=== PATIENT | female | born 1995 | race Caucasian/White ===

== ENCOUNTER 2023-06-05 15:17 | Outpatient (CLI) | payer OTHER, SELFPAY ==
--- NOTE | ~2023-06-05 | US_ITS ---
EXAMINATION: US OB follow up DATE: 06/05/2023 16:25 INDICATION: Encounter for supervision of normal . TECHNIQUE: Real-time ultrasound of the pelvis was performed. COMPARISON: Ultrasound 02/19/2023, 11/27/22 FINDINGS: There is a single living fetus in vertex presentation. The placenta is anterior. The cervical length is 3.5 cm on transabdominal images, which is normal. heart rate is 135 beats per minute (bpm). The amniotic fluid index is 20.0, which is normal. The following biometric data were obtained: Biparietal diameter (BPD): 9.4 cm; head circumference (HC): 32.5 cm; abdominal circumference (AC): 32 .9 cm; femur length (FL): 7.2 cm. These measurements are concordant. Estimated weight is 3089 g +/- 463 g, which correlates with the 75th percentile when 07/02/23 is used as estimated date of delivery. As single measurements, these parameters are each equal to the following estimated gestational ages: BPD: 38 weeks 1 days. HC: 36 weeks 6 days. AC: 36 weeks 5 days. FL: 37 weeks 0 days. estimated gestational age based solely on measurements from this exam is 37 weeks 1 days +/- 2 weeks 4 days. IMPRESSION: 1. Single living fetus in vertex presentation. 2. Estimated weight is 3089 g +/- 463 g, which correlates with the 75th percentile when 3 is used as estimated date of delivery. Reviewed, dictated and finalized at location B. IMPRESSION: 1. Single living fetus in vertex presentation. 2. Estimated weight is 3089 g +/- 463 g, which correlates with the 75th percentile when 07/02/23 is used as estimated date of delivery.
== END 2023-06-05 15:18 | disposition home or self-care (01) ==
PROVIDERS: Visit Provider Student in an Organized Health Care Education/Training Program
DX: Z34.93 Encounter for supervision of normal pregnancy, unspecified, third trimester (principal); Z3A.37 37 weeks gestation of pregnancy
CPT/HCPCS: 76816

== ENCOUNTER 2023-06-27 06:12 | Inpatient (IN) | payer OTHER, SELFPAY ==
[2023-06-27] VITALS (175 sets, daily range): BP systolic 69–130; BP diastolic 43–99; PULSE 52–123; RESP 18; TEMP 36.2–36.6; O2SAT 95–100; BMI 38.9
--- NOTE | 2023-06-27 06:40 | LDADM ---
This patient, Bibi Null, was admitted to Labor/Delivery/Recovery 104 on 06/27/23 at 06:12. Plans for labor, pain management and were discussed with patient. Patient/family oriented to hospital policies and general routines including ID bracelet, bed and alarms, visiting hours, pain management, procedures, bathroom and other care routines, personal items, smoking policy, room service/diet and guest tray routines, security routines, and visiting hours. Patient/Family are encouraged to report perceived risks to care and to ask questions if they do not understand what they are told or what they should do. See OBIX for further documentation.
[2023-06-27] MEDS: OXYTOCIN 30 UNITS/NS 500 ML 30 UNITS/500 ML BAG IV CONT (07:25)
[2023-06-27] MEDS: AMPICILLIN 2 GM/NS 100 ML 2 GM/100 ML BAG IVPB (07:26)
[2023-06-27] MEDS: LACTATED RINGERS 1,000 ML 125 ML IV CONT ×2 (07:26→09:14)
[2023-06-27 07:49] LABS: Basophils Percent Auto 0.3 % (0.2-1.2); Eosinophils Absolute Auto 0.1 K/mm3 (0-0.3); Eosinophils Percent Auto 0.9 % (0-4.4); Hematocrit 35.5 % (37.0-47.0); Hemoglobin 11.4 g/dL (12.0-15.0); Immature Granulocyte Absolute 0.01 K/mm3 (0.00-0.031); Immature Granulocyte Percent A 0.1 % (0-0.5); Lymphocytes Absolute Auto 1.77 K/mm3 (0.9-3.2); Lymphocytes Percent Auto 25.9 % (18.3-44.2); Mean Corpuscular HGB Conc 32.1 g/dl (32-36); Mean Corpuscular Hemoglobin 28.1 pg (26-34); Mean Corpuscular Volume 87.4 fl (80-100); Mean Platelet Volume 11.5 fl (7.4-10.4); Monocytes Absolute Auto 0.4 K/mm3 (0.1-0.6); Monocytes Percent Auto 6.1 % (2.6-8.5); Neutrophils Absolute Auto 4.6 K/mm3 (1.3-6.7); Neutrophils Percent Auto 66.7 % (45.5-73.1); Platelet Count Result 162 k/mm3 (150-375); Red Blood Count 4.06 M/mm3 (4.2-5.4); Red Cell Distribution Width 13.2 % (11.5-14.5); White Blood Count 6.8 K/mm3 (4.5-10.0)
[2023-06-27 08:42] LABS: Rubella IgG Antibody 40.4 IU/ML
--- NOTE | 2023-06-27 09:56 | WPDANESEPP ---
Anes - Eval Pre Procedure Procedure: Labor Epidural Date/Time: 06/27/23 09:56 Surgeon: Sultana Preop Diagnosis: Labor Pain Pre Op Diagnosis: Induction of Labor Patient Data Age: 28 Gender: F Height: 1.63 m Weight: 103 kg Last Vital Signs Temp 36.2 C L 06/27/23 09:11 Pulse 89 06/27/23 09:55 BP 126/76 06/27/23 09:55 Pulse Ox 100 06/27/23 09:52 O2 Del Method Room Air 06/27/23 06:38 Allergies Allergy/AdvReac Type Severity Reaction Status Date / Time No Known Allergies Allergy Verified 06/25/23 14:26 Home Medications Medication Instructions Recorded Confirmed Type PNV 153-FA 400 mcg-om3 35 mg-dha 1 tablet PO DAILY 04/19/23 06/20/23 History 25 mg-epa 5 mg-fish oil chew tablet ( Gummies) ferrous sulfate 325 mg (65 mg 325 mg PO DAILY #90 tabs 04/19/23 06/20/23 Rx iron) tablet,delayed release Laboratory Tests 06/27/23 06/27/23 06:51 07:02 WBC 6.8 K/mm3 (4.5-10.0) RBC 4.06 L M/mm3 (4.2-5.4) Hgb 11.4 L g/dL (12.0-15.0) Hct 35.5 L % (37.0-47.0) MCV 87.4 fl (80-100) MCH 28.1 pg (26-34) MCHC 32.1 g/dl (32-36) RDW 13.2 % (11.5-14.5) Plt Count 162 k/mm3 (150-375) MPV 11.5 H fl (7.4-10.4) Immature Gran % (Auto) 0.1 % (0-0.5) Neut % (Auto) 66.7 % (45.5-73.1) Lymph % (Auto) 25.9 % (18.3-44.2) [place] % (Auto) 6.1 % (2.6-8.5) Eos % (Auto) 0.9 % (0-4.4) Baso % (Auto) 0.3 % (0.2-1.2) Lymph # (Auto) 1.77 K/mm3 (0.9-3.2) [place] # (Auto) 0.4 K/mm3 (0.1-0.6) Eos # (Auto) 0.1 K/mm3 (0-0.3) Baso # (Auto) 0.0 K/mm3 (0.0-0.1) Abs Immat Gran (auto) 0.01 K/mm3 (0.00-0.031) Absolute Neuts (auto) 4.6 K/mm3 (1.3-6.7) Absolute Nucleated RBC 0.0 K/mm3 (0.0-0.012) Nucleated RBC % 0.0 % (0.0-0.2) RPR Pending Rubella IgG Antibody 40.4 IU/ML (10 - ) Blood Type A Positive Antibody Screen Negative Patient hx anesthesia problems: none Family hx anesthesia problems: none Results Review: All pre-operative results and documents have been reviewed as part of the pre-operative evaluation. [facility] Past Medical History Medical History Suppression of menses Family History Family History Father Congestive heart failure Social History Social History Smoking status: Current every day smoker Tobacco type: e-cigarettes/vaping Alcohol intake: never Substance use: never Lack of Transportation: No Lack of Food: Never True Current Housing: I Have Housing Concerned About Future Housing: No Difficulty Paying Gas/Electric Bills: No Difficulty Paying for Meds: No Currently Unemployed: No Education: High School Diploma/GED Difficulty w/ Childcare or Family Care: No Occupation/Education: unemployed Gender identity (if verbalized by the patient): Female Sexual Orientation (if Verbalized by the Patient): Straight or Heterosexual Spiritual care concerns: No Exam Day of Procedure 06/27/23 09:56 Patient weight: obese Heart: regular rate and rhythm Lungs: normal air movement Airway: Mallampati scale class II Neurological: alert and oriented
[2023-06-27] MEDS: CALCIUM CARBONATE (TUMS) 500 MG (200 MG ELEMENTAL) (10:19)
--- NOTE | 2023-06-27 10:25 | WPDHPUPDATE1 ---
History and Physical Update Update Date/Time: 06/27/23 10:25 28-year-old who presents for elective induction of labor at 39 weeks 2 days. Her has been uncomplicated thus far. History and Physical has been reviewed, including an updated exam of the patient. There are NO changes in the patient's condition. Risks, benefits, and alternatives have been discussed and questions answered. Patient agrees to proceed with procedure. A/P: Admit to L&D Routine admission orders labs reviewed Rh positive GBS unknown, will treat with antibiotics Plan for elective induction of labor Continuous external monitoring Will plan for AROM and Pitocin for augmentation of labor
[2023-06-27] MEDS: AMPICILLIN 1 GM/NS 50 ML 1 GM/50 ML BAG IVPB ×2 (11:51→16:00)
--- NOTE | 2023-06-27 12:21 | PM.OBPNLAB ---
Pain Control Date/time seen: 06/27/23 12:21 Pain control: tolerating well and epidural Pelvic Exam Dilation (cm): 4 Effacement (%): 50 station: -2 Amniotic membrane status: Ruptured Contractions Monitor mode: External Contraction pattern: Regular Status status: Category l Assessment and Plan Pitocin rate (mU/min): 6 Assessment: induction ongoing Plan: continuous present management Comments: IUPC placed
[2023-06-27] MEDS: ONDANSETRON INJ 4 MG/2 ML VIAL IV PUSH (13:52)
[2023-06-27 14:43] LABS: Rapid Plasma Reagin Non-Reactive (NonReactive)
--- NOTE | 2023-06-27 16:32 | PM.OBPRVD ---
OB - Delivery Note Procedure Procedure: Patient pushed for a spontaneous vaginal delivery. The fetus was delivered atraumatically and placed on the maternal abdomen. The cord was clamped and cut after 1 minute of life. The cord was double clamped and cut and a segment of cord was collected for cord gases. Cord blood was collected for blood type and Coomb's testing. The placenta delivered spontaneously and was noted to be intact. The perineum was inspected and there was a 1st degree perineal laceration. The laceration was repaired with 3-0 vicryl in the usual fashion. The uterus was firm and good hemostasis was noted. The patient and fetus were stable in the delivery room. Induction method: Per Pitocin Protocol Delivery augmentation: Rupture of Membranes Delivery monitor: External FHT Route of delivery: Episiotomy description: None Laceration Description: Labial (right) Delivery repair: vicryl Specimen: No Quantitative Blood Loss (ml): 200 Anesthesia type: Epidural Disposition: Floor () Complications: No immediate complications Baby Date of : 06/27/23 Time of : 16:14 Weeks of gestation at delivery: 39 Infant gender: Male presentation: vertex position: Right Occiput Anterior Placenta delivery description: Spontaneous Cord Vessel Description: 3 Vessels score one minute: 8 score five minutes: 9 AMG Delivery Billing Delivery Delivery: Delivery Charge
--- NOTE | 2023-06-27 17:05 | PM.OBDSVD ---
DS: Admitting Diagnosis Discharge Date 06/28/23 Admitting Diagnosis intrauterine at term DS: Discharge Diagnosis Discharge Diagnosis (1) Supervision of high risk , unspecified, third trimester: Code(s): O09.93 - Supervision of high risk , unspecified, third trimester Status: Acute OB - DS: Summary OB Procedures : None OB Procedures Intrapartum: Spontaneous Vag Delivery OB Procedures: : None Status at Discharge Functional status at discharge: independent ambulation Overall status at discharge: patient is back to baseline Time Spent with Patient Time attestation: Total time spent providing and/or coordinating discharge services: Time spent: Less than 30 minutes Exam Const: General: comfortable and no acute distress Resp: Effort & Inspection: normal respiratory effort Auscultation: clear to auscultation bilaterally Cardio: Rate: regular rate GI: GI Palp: Yes Soft to palpation Auscultation: normal bowel sounds Other: Fundus firm below umbilicus Psych: Appearance: grossly normal Mental Status: mental status grossly normal Affect: normal affect DS: Data Data Completed and Pending Labs on day of discharge: Labs from last 24 hours 06/27/23 06/27/23 07:02 06:51 WBC 6.8 RBC 4.06 L Hgb 11.4 L Hct 35.5 L MCV 87.4 MCH 28.1 MCHC 32.1 RDW 13.2 Plt Count 162 MPV 11.5 H Immature Gran % (Auto) 0.1 Neut % (Auto) 66.7 Lymph % (Auto) 25.9 [place] % (Auto) 6.1 Eos % (Auto) 0.9 Baso % (Auto) 0.3 Lymph # (Auto) 1.77 [place] # (Auto) 0.4 Eos # (Auto) 0.1 Baso # (Auto) 0.0 Abs Immat Gran (auto) 0.01 Absolute Neuts (auto) 4.6 Absolute Nucleated RBC 0.0 Nucleated RBC % 0.0 RPR Non-reactive Rubella IgG Antibody 40.4 Blood Type A Positive Antibody Screen Negative Discharge Plan Discharge Consulting providers: Rosy Alfaro; Adela Upton; Lex Weinberg Discharging Clinician: Rafat Schumacher Patient Disposition: Home, Self-Care Activity: as tolerated and pelvic rest Diet: regular Discharge Instructions: Education: Mom and Baby Guide Given to: Mother Follow-Up: Call your delivering provider's office for an appointment to be seen in: 4-6 weeks Mom and baby should come to the [facility] for the follow-up appointment. Appointment Date/Time: June 30, 2023 at 9:00 am What to expect at your follow-up visit: Physical Assessment Call [phone] if you are unable to keep your appointment time. BREAST CARE: * Wear a snug supportive bra. * Bottle Feeding: * May apply ice packs EPISIOTOMY/PERINEAL CARE: * Until bleeding stops, use your edel bottle after urinating * Change your pad frequently throughout the day * You may take sitz baths several times a day (fill your bathtub with warm water and soak for 20 minutes.) Do NOT bathe in the water * No tub baths until seen by your physician - You may shower ACTIVITY: * Rest as much as possible. * Do not exercise or lift anything heavier than your baby (such as laundry or other children.) * Avoid stairs or driving as much as possible. * Do not put anything into the vagina. No douching, tampons, or sexual activity until seen by physician. NOTIFY PHYSICIAN IF YOU HAVE ANY QUESTIONS OR IF ANY OF THE FOLLOWING SYMPTOMS OCCUR: * If your episiotomy/perineum becomes red, swollen, or more painful than what you have experienced in the hospital. * If your vaginal bleeding becomes foul smelling. * If your vaginal bleeding becomes more heavy than a period or if your bleeding changes from pink to bright red. However, you may pass an occasional walnut-sized clot once or twice for the first week . * If you experience a sharp, shooting pain in you calves. * If you discover a hard, reddened area on your breast or if you experience flu-like symptoms. DIET: * Eat regular, well-balanced me
[2023-06-27] MEDS: OXYTOCIN 30 UNITS/NS 500 ML 30 UNITS/500 ML BAG 125 UNITS IV CONT (17:06)
[2023-06-28 04:13] VITALS: BP 124/66; PULSE 57; RESP 18; TEMP 35.9; O2SAT 100
[2023-06-28 04:22] LABS: Hematocrit 33.5 % (37.0-47.0); Hemoglobin 10.6 g/dL (12.0-15.0)
--- NOTE | 2023-06-28 07:41 | PM.OBDSVD ---
DS: Admitting Diagnosis Discharge Date 06/28/2023 Admitting Diagnosis DS: Discharge Diagnosis Discharge Diagnosis (1) , delivered: Code(s): O80 - Encounter for full-term uncomplicated delivery Status: Acute OB - DS: Summary OB Procedures : None OB Procedures Intrapartum: Spontaneous Vag Delivery OB Procedures: : None Time Spent with Patient Time attestation: Total time spent providing and/or coordinating discharge services: DS: Data Data Completed and Pending Labs on day of discharge: Labs from last 24 hours 06/28/23 06/27/23 06/27/23 03:53 07:02 06:51 WBC 6.8 RBC 4.06 L Hgb 10.6 L 11.4 L Hct 33.5 L 35.5 L MCV 87.4 MCH 28.1 MCHC 32.1 RDW 13.2 Plt Count 162 MPV 11.5 H Immature Gran % (Auto) 0.1 Neut % (Auto) 66.7 Lymph % (Auto) 25.9 [place] % (Auto) 6.1 Eos % (Auto) 0.9 Baso % (Auto) 0.3 Lymph # (Auto) 1.77 [place] # (Auto) 0.4 Eos # (Auto) 0.1 Baso # (Auto) 0.0 Abs Immat Gran (auto) 0.01 Absolute Neuts (auto) 4.6 Absolute Nucleated RBC 0.0 Nucleated RBC % 0.0 RPR Non-reactive Rubella IgG Antibody 40.4 Blood Type A Positive Antibody Screen Negative Discharge Plan Discharge Discharging Clinician: Rafat Schumacher Patient Disposition: Home, Self-Care Activity: as tolerated and pelvic rest Diet: regular Patient Instructions: Antibiotic Form, Vaginal Delivery (DC) Stand Alone Forms: General Discharge Information Follow-up/Referrals: Rafat Schumacher MD [Physician] - Discharge Medications: New acetaminophen 500 mg tablet 500 mg PO Q6H PRN (Reason: pain) Qty: 30 0RF ibuprofen 600 mg tablet 600 mg PO Q6H PRN (Reason: pain) Qty: 30 0RF Continued Gummies 400 mcg-35 mg- 25 mg-5 mg tablet,chewable 1 tablet PO DAILY ferrous sulfate 325 mg (65 mg iron) tablet,delayed release (DR/EC) 325 mg PO DAILY Qty: 90 2RF Date of admission: 06/27/23 06:12 Primary Care Provider: PHYSICIAN,MANAGER UTILIZATION Admitting Provider: Rafat Schumacher Attending physician on admission: Rafat Schumacher Condition: Stable
[2023-06-28] MEDS: IBUPROFEN 600 MG TABLET PO (08:16)
[2023-06-28] MEDS: DOCUSATE SODIUM 100 MG CAPSULE PO (08:16)
[2023-06-28] MEDS: MULTIVIT/MIN/PREN/FOL AC/IRON TABLET 1 TAB PO (08:16)
[2023-06-28 08:35] VITALS: BP 106/63; PULSE 63; RESP 18; TEMP 36.2; O2SAT 100
[2023-06-28] MEDS: ACETAMINOPHEN 325 MG TABLET 650 MG PO (10:13)
[2023-06-28 12:36] VITALS: BP 98/50; PULSE 65; RESP 16; TEMP 36.6; O2SAT 100
--- NOTE | 2023-06-28 13:26 | WPDANLDPN2 ---
Anes-Prog Note L&D Date/Time: 06/28/23 13:26 Comfortable throughout: labor and delivery Neuraxial method: epidural Epidural/Spinal procedure site: clean & non-tender Neuro status: Neuro function grossly intact. Cardiovascular status: normal Respiratory status: normal Airway patency: baseline Mental status: baseline Post-Op hydration status: normal Vital Signs: Last Vital Signs Temp 36.6 C 06/28/23 12:36 Pulse 65 06/28/23 12:36 Resp 16 06/28/23 12:36 BP 98/50 L 06/28/23 12:36 Pulse Ox 100 06/28/23 12:36 O2 Del Method Room Air 06/27/23 23:06 Pain score (VAS): 2/10 I/O: Intake & Output 06/27/23 06/28/23 06/28/23 23:59 07:59 15:59 Intake Total 1550 Output Total 500 Balance 1050 Post-procedural complaints: none Patient feedback: Patient satisfied with anesthetic care.
--- NOTE | 2023-06-28 14:01 | PC.NURSE ---
Patient to view the discharge video Mother & Baby Care, The First Two Weeks online. Patient was given the opportunity and encouraged to ask questions. Patient verbalized understanding of information shared and has been given the mother/baby guide for home reference.
[2023-06-30 09:19] VITALS: BP 115/89; PULSE 87; RESP 18; TEMP 36.7; O2SAT 100
== END 2023-06-28 17:07 | disposition home or self-care (01) | DRG 560 ==
LOC: ANHLDR 17:06 → ANHOB2 20:57
PROVIDERS: Obstetrics & Gynecology; Admitting Provider Student in an Organized Health Care Education/Training Program; Visit Provider Student in an Organized Health Care Education/Training Program
DX: O70.0 First degree perineal laceration during delivery (principal); Z37.0 Single live birth; Z3A.39 39 weeks gestation of pregnancy
CPT/HCPCS: 36415; 85014; 85018; 85025; 86592; 86762; 86850; 86900; 86901; A9270; J0290; J2405; J2590; J2795; J7120